=== PATIENT | female | born 1960 | race Caucasian/White ===

== ENCOUNTER 2025-02-24 12:01 | Emergency (ER) | payer OTHER, SELFPAY ==
[2025-02-24] VITALS (22 sets, daily range): BP systolic 118–169; BP diastolic 66–102; PULSE 74–97; RESP 15–25; TEMP 36.9; O2SAT 93–100
--- NOTE | ~2025-02-24 | XR_ITS ---
XR chest 2V Ordering provider: Kimani Shore MD History: 64 years Female with . cp, LEFT SIDE INTENSE CHEST PRESSURE . Comparison: None. FINDINGS: MEDIASTINUM: The cardiac silhouette is not enlarged. LUNGS: No effusions or pneumothorax. Prominent bronchovascular markings in the left lower lobe area. Follow-up to exclude early pneumonia advised. OTHER: No free air under the diaphragm. IMPRESSION: No definite acute cardiopulmonary pathology. Slightly prominent markings in the left lower lobe area. Follow-up to exclude early pneumonia advised. Reviewed, dictated and finalized at location A.
--- NOTE | ~2025-02-24 | CT_ITS ---
EXAMINATION: CTA chest abdomen pelvis DATE: 02/24/2025 15:49 INDICATION: Left chest pain radiating to back. Diaphoresis. TECHNIQUE: Computed tomographic angiography (CTA) of the chest, abdomen, and pelvis was performed wit h 100 mL Omnipaque-350 intravenous contrast. Volume-rendered 3D-reconstructions of the aorta and larg e arteries were constructed by the technologist on a separate workstation. Automated exposure control and iterative reconstruction technique were employed. The dose-length product was 1084.54 mGy-cm. COMPARISON: None FINDINGS: Chest: Mild dependent and basilar atelectasis in the bilateral lower lobes. No pneumonia, pulmonary edema, p leural effusion or pneumothorax. Heart size is normal. No pericardial effusion. Thoracic aorta is nor mal in caliber with no dissection. No pathologically enlarged thoracic lymphadenopathy. Small sliding -type hiatal hernia. Moderate thoracic spondylosis. Abdomen and pelvis: Postoperative changes of prior Jose Elias-en-Y gastric bypass procedure with jejunojejunal anastomosis in t he left upper quadrant. There are prominent edematous-appearing wall thickening of the stomach scarri ng along the lesser curvature and more diffusely about the gastric antrum and pylorus suspicious for gastritis or peptic ulcer disease. A few gallstones in the dependent aspect of the normal-appearing g allbladder. Liver, spleen, pancreas, bilateral adrenal glands and kidneys are normal. No bowel obstru ction. Normal appendix. Bladder, uterus and bilateral adnexa are unremarkable. Small amount of perihe patic, perisplenic and pelvic ascites. No abscess or free intraperitoneal gas. No pathologically enla rged abdominal or pelvic lymphadenopathy. Small amount of atherosclerotic plaque along the normal zabrina iber abdominal aorta with no dissection or hemodynamically significant stenosis. Mild S-shaped curvat ure of the lumbar spine with moderate to severe spondylosis. IMPRESSION: 1. Postoperative changes of prior gastric bypass procedure with prominent wall thickening in the mid to distal stomach which could be seen with gastritis or peptic ulcer disease. 2. Cholelithiasis. 3. Small amount of nonspecific ascites in the abdomen or pelvis. Reviewed, dictated and finalized at location A. IMPRESSION: 1. Postoperative changes of prior gastric bypass procedure with prominent wall thickening in the mid to distal stomach which could be seen with gastritis or p eptic ulcer disease. 2. Cholelithiasis. 3. Small amount of nonspecific ascites in the abdomen or pelvis.
--- NOTE | 2025-02-24 12:02 | ECG_ITS ---
Test Date: 2025-02-24 12:06:03 Measurements Intervals [place] Rate: 91 P: 60 MT: 165 QRS: 29 QRSD: 91 T: 50 QT: 360 QTc: 445 Interpretive Statements SINUS RHYTHM No previous ECG available for comparison Electronically Signed On 02-24-2025 14:14:26 CDT by Jerilyn Mills
--- OUTSIDE RECORDS SUMMARY | 2025-02-24 12:06 | XMS_ITS | Clinical Summary ---
Author Organization [facility] Address [address] [place] [address] Phone Care Team Providers Care Stage Driver Name Role Phone Unavailable Primary Care Provider Unavailabl e Social History Tobacco Use Types Packs/Day Years Used Date Smoking Tobacco: Never Assessed Comments Unknown Sex and Gender Information Value Date Recorded Sex Assigned at Not on file Legal Sex Female 12:22 PM CDT Gender Identity Not on file Sexual Orientation Not on file Plan of Treatment Health Maintenance Due Date Last Done Comments DTAP/TDAP/TD VACCINES (1 - Tdap) 1980 HPV/Cotest (21-29) 1982 CERVICAL CANCER SCREENING 1991 HPV/Cotest (30-65) 1991 PAP SMEAR 1991 BREAST CANCER SCREENING 2001 COLORECTAL SCREENING 2006 Colorectal Cancer Screening 2006 FIT-DNA Q 3 years 2006 FIT/FOBT Q 1 year 2006 Flex Sig/CT Colonography Q 5 years 2006 ZOSTER VACCINE (1 of 2) 2011 INFLUENZA VACCINE (#1) 2024 RSV VACCINE (60+ or ) (1 - 1-dose 75+ series) 2036
--- OUTSIDE RECORDS SUMMARY | 2025-02-24 12:06 | XMS_ITS | Clinical Summary ---
Author Organization [facility] Address [address] [place] [id number] Care Team Providers Care Salvage Winder And Inspector Name Role Phone Unavailable Primary Care Provider Unavailabl e Social History Tobacco Use Types Packs/Day Years Used Date Smoking Tobacco: Never Assessed Comments Unknown Sex and Gender Information Value Date Recorded Sex Assigned at Not on file Legal Sex Female 4:53 PM CDT Gender Identity Not on file Sexual Orientation Not on file Plan of Treatment Health Maintenance Due Date Last Done Comments Cervical Cancer Screening Pa p Smear (Age 30 to 64) Every 3 Years 1961 Colorectal Cancer Screening Colonoscopy (10 Years) 1961 Annual Physical 1964 Hepatitis C 1979 DTaP, Tdap and Td Vaccines ( 1 - Tdap) 1980 Cervical Cancer Screening Pa p with HPV Testing (Age 30 to 64) Every 5 Years 1991 Cervical Cancer Screening with HPV 1991 Mammogram Screening 2001 Pneumococcal Vaccine: 50+ Ye ars (1 of 1 - PCV) 2011 Zoster Vaccines (1 of 2) 2011 COVID-19 Vaccine (2023-2 5 season) 2024 RSV Immunization or 60+ Years (1 - 1-dose 75+ series) 2036 Meningococcal B Vaccine Aged Out No l onger eligible based on patient's age to complete this topic Meningococcal Vaccine Aged Out No parvin jordin eligible based on patient's age to complete this topic RSV Immunizations Under 20 Months Aged Out No longer eligible based on patient's age to complete this topic
[2025-02-24 12:15] LABS: Basophils Absolute Auto 0.1 K/mm3 (0.0-0.1); Basophils Percent Auto 0.9 % (0.2-1.2); Eosinophils Absolute Auto 0.1 K/mm3 (0-0.3); Eosinophils Percent Auto 0.9 % (0-4.4); Hemoglobin 12.9 g/dL (12.0-15.0); Immature Granulocyte Absolute 0.05 K/mm3 (0.00-0.031); Immature Granulocyte Percent A 0.7 % (0-0.5); Lymphocytes Absolute Auto 1.71 K/mm3 (0.9-3.2); Lymphocytes Percent Auto 22.2 % (18.3-44.2); Mean Corpuscular HGB Conc 31.5 g/dl (32-36); Mean Corpuscular Hemoglobin 28.9 pg (26-34); Mean Corpuscular Volume 91.9 fl (80-100); Mean Platelet Volume 8.7 fl (7.4-10.4); Monocytes Absolute Auto 0.5 K/mm3 (0.1-0.6); Monocytes Percent Auto 6.1 % (2.6-8.5); Neutrophils Absolute Auto 5.3 K/mm3 (1.3-6.7); Neutrophils Percent Auto 69.2 % (45.5-73.1); Platelet Count Result 393 k/mm3 (150-375); Red Blood Count 4.46 M/mm3 (4.2-5.4); Red Cell Distribution Width 13.3 % (11.5-14.5); White Blood Count 7.7 K/mm3 (4.5-10.0)
--- NOTE | 2025-02-24 12:16 | ED_ITS ---
HPI - Chest Pain General Chief Complaint: Chest Pain Stated Complaint: chest pain Time Seen by Provider: 02/24/25 12:03 History of Present Illness HPI narrative: 64-year-old female with a past medical history including hypertension, ADHD. She presents to the emergency room with chief complaint of left-sided squeezing chest pressure. She states that happened within the last hour while she was at work not doing anything particular stress for or strenuous. No exertional onset. No change in quality of symptoms with positional changes such as lying flat or leaning forward. No associated difficulty in breathing. Minor nauseousness that since abated. Chest pressure reached intensity after about 15 minutes and then slowly went away but not fully back to normal. No back pain, abdominal pain, fever chills. Some slight radiation towards the left jaw and left arm according to the patient. No history of cardiac disease to her knowledge. Recently saw her regular doctor for hypertension follow-up and notes that her blood pressure today is higher than it has ever been. Related Data Allergies Allergy/AdvReac Type Severity Reaction Status Date / Time No Known Allergies Allergy Mild Verified 02/24/25 12:11 Review of Systems 2 Review of Systems: As reviewed above in HPI [facility] Past Medical History Medical History Small bowel perforation Anemia Surgical History Surgical History History of dilation and curettage Hx of exploratory laparotomy History of laparoscopy Family History Family History Mother Hypertension Cerebrovascular accident Family history of diabetes mellitus in first degree relative Family history of coronary artery disease Family history of dementia Father Family history of elevated blood lipids Family history of coronary artery disease, Onset Age: 200 Patient's father is Other Diabetes mellitus Family history of cardiovascular disease Family history of kidney disease Social History Social History Smoking status: Never smoker Second hand tobacco smoke exposure: No Alcohol intake: current Do You Feel Safe in your Home?: Yes Lack of Transportation: No Lack of Food: Never True Current Housing: I Have Housing Concerned About Future Housing: No Difficulty Paying Gas/Electric Bills: No Difficulty Paying for Meds: No Currently Unemployed: No Education: Associate Degree Difficulty w/ Childcare or Family Care: No Exam 2 Narrative: GENERAL: [Well-appearing, well-nourished, and in no acute distress.] HEAD: [Normocephalic, atraumatic.] EYES: [PERRLA and EOMI.] ENT: Nares clear, no rhinorrhea or epistaxis. Mucous membranes moist. NECK: Supple. CHEST: [Clear to auscultation. No respiratory distress.] HEART: [Regular rate and rhythm]. No murmur heard. [Normal peripheral pulses.] ABDOMEN: [Soft, nondistended], [nontender], [No rigidity or guarding] EXTREMITIES: Normal range of motion. [No edema.] SKIN: Warm, dry, no rash. NEURO: [No focal deficits]. Alert and oriented [x3.] PSYCH: [Normal mood and affect.] Course Vital Signs Vital signs: Vital Signs Temperature 36.9 C 02/24/25 12:05 Pulse Rate 97 02/24/25 12:05 Respiratory Rate 18 02/24/25 12:05 Blood Pressure 169/102 H 02/24/25 12:05 Pulse Oximetry 100 02/24/25 12:05 Oxygen Delivery Room Air 02/24/25 12:05 Temperature 36.9 C 02/24/25 12:05 Pulse Rate 94 02/24/25 18:26 Respiratory Rate 16 02/24/25 18:26 Blood Pressure 118/72 02/24/25 18:26 Pulse Oximetry 99 02/24/25 18:26 Oxygen Delivery Room Air 02/24/25 12:05 MDM - Chest Pain MDM Narrative Medical decision making narrative: 64-year-old female with history of hypertension and ADHD who presents to the emergency room with left-sided squeezing chest pain/pressure. Onset within the last hour, reached intensity after about 15 minutes and then slowly came down. Minor associated nauseousness that has stopped. No vomiting, shortness a breath, pleuritic chest pain, pain with positional changes, abdominal pain, burning epigastric pain, fever, chills. No trauma or injury. Otherwise was in her normal state of health with recent follow-up with her PCP for hypertension. Her blood pressure is elevated 169/102 but no tachycardia, fever, hypoxia or significant elevations compared to her prior baseline blood pressure. Considerations presently are for acute coronary syndrome, angina, musculoskeletal chest pain, GERD, pneumothorax, pneumonia, pulmonary embolism, less likely aortic process. Cardiac workup ordered including CBC, CMP, lipase, chest x-ray, EKG, serial troponins, D-dimer. Patient placed on monitoring engineer and frequently re-evaluated. Workup shows no leukocytosis or anemia. Slightly elevated platelet count. Negative troponin x2. Negative D-dimer. Coagulation panel is normal. Normal electrolytes, normal renal function, normal LFTs and glucose. Chest x-ray shows no definitive acute pathology but some slightly prominent markings left lower lobe concerning for potential early pneumonia. Patient was re-evaluated and was diaphoretic and pain requiring additional analgesics. We ordered a CT angiography of the chest abdomen pelvis at this time for further evaluation given patient's worsening pain. CT shows postoperative changes from a previous gastric bypass with wall thickening consistent with gastritis versus peptic ulcer disease. Some cholelithiasis that is likely asymptomatic and she has no abdominal right-sided pain. And small trace ascites. Patient re-evaluated after treatments and had significant improvement her pain. I discussed the CT findings with her as well as her workup. Thinking at this time that her symptoms in the left side of her chest likely secondary to gastritis and irritation of the diaphragm. Patient will be referred to a GI doctor and a surgeon and started on acid thad medications. She was given prescription medications and comfortable with discharge home with outpatient follow-up. Patient's questions were answered she was given strict return precautions prior to safe discharge home. Medical Records Data Attestation: I reviewed the patient's medical records. Lab Data Attestation: I reviewed the patient's lab results. 02/24/25 12:10 02/24/25 12:09 Labs: Lab Results 02/24/25 02/24/25 02/24/25 Range/Units 12:09 12:10 14:45 WBC 7.7 (4.5-10.0) K/mm3 RBC 4.46 (4.2-5.4) M/mm3 Hgb 12.9 (12.0-15.0) g/dL Hct 41.0 (37.0-47.0) % MCV 91.9 (80-100) fl MCH 28.9 (26-34) pg MCHC 31.5 L (32-36) g/dl RDW 13.3 (11.5-14.5) % Plt Count 393 H (150-375) k/mm3 MPV 8.7 (7.4-10.4) fl Immature Gran % (Auto) 0.7 H (0-0.5) % Neut % (Auto) 69.2 (45.5-73.1) % Lymph % (Auto) 22.2 (18.3-44.2) % [place] % (Auto) 6.1 (2.6-8.5) % Eos % (Auto) 0.9 (0-4.4) % Baso % (Auto) 0.9 (0.2-1.2) % Lymph # (Auto) 1.71 (0.9-3.2) K/mm3 [place] # (Auto) 0.5 (0.1-0.6) K/mm3 Eos # (Auto) 0.1 (0-0.3) K/mm3 Baso # (Auto) 0.1 (0.0-0.1) K/mm3 Abs Immat Gran (auto) 0.05 H (0.00-0.031) K/mm3 Absolute Neuts (auto) 5.3 (1.3-6.7) K/mm3 Absolute Nucleated RBC 0.000 (0.0-0.012) K/mm3 Nucleated RBC % 0.0 (0.0-0.2) % PT 13.0 (11.1-14.7) Seconds INR 0.9 APTT 23.0 (22.3-36.8) Seconds D-Dimer 0.46 (<0.48) ug/mL Sodium 137 (137-145) mmol/L Potassium 4.1 (3.4-5.0) mmol/L Chloride 104 (98-107) mmol/L Carbon Dioxide 24 (22-30) mmol/L Anion Gap 9 (4-12) mmol/L BUN 20 H (7-17) mg/dL Creatinine 0.92 (0.7-1.0) mg/dL Estim Creat Clear Calc 61 ml/min Estimated GFR > 60 (59 - ) Glucose 105 (65-110) mg/dL Calcium 9.0 (8.4-10.2) mg/dL Total Bilirubin 0.9 (0.2-1.3) mg/dL AST 56 H (14-36) U/L ALT 81 H (6-35) U/L Alkaline Phosphatase 92 (38-126) U/L Troponin I < 0.012 < 0.012 (0.000-0.034) ng/mL Total Protein 8.0 (6.3-8.2) g/dL Albumin 4.6 (3.5-5.1) g/dL Lipase 135 (23-300) U/L Imaging Data Attestation: I personally reviewed and interpreted this imaging study as follows: My impression: Impressions Chest X-Ray 02/24/25 12:25 IMPRESSION: No definite acute cardiopulmonary pathology. Slightly prominent markings in the left lower lobe area. Follow-up to exclude early pneumonia advised. Chest/Abdomen/Pelvis CTA 02/24/25 15:54 IMPRESSION: 1. Postoperative changes of prior gastric bypass procedure with prominent wall thickening in the mid to distal stomach which could be seen with gastritis or peptic ulcer disease. 2. Cholelithiasis. 3. Small amount of nonspecific ascites in the abdomen or pelvis. ECG Data EKG #1: Attestation: I personally reviewed and interpreted this ECG as follows: ECG completion date: 02/24/25 ECG completion time: 12:06 Prior ECG tracings: not available for review Interpretation: Sinus rhythm, no ST segment elevations, depressions or acute inversions. No QTC EKG for comparison. QTC 445, QRS 91, ID interval 165, rate of 91 beats per minute. Regular rate, regular rhythm and axis. Discharge Plan Discharge Clinical Impression: Chest pain, Gastritis Patient Disposition: Home Condition: Stable Instructions: Antibiotic Form, Chest Pain (ED), Gastritis (DC) Additional Instructions: Your CT scan shows prominent thickening of the distal stomach near by your gastric bypass procedure. This could be gastritis or peptic ulcer disease. Your CT scan also shows some small gallstones but no cholecystitis or concern from that aspect causing any of her symptoms today. We will send you home with a combination medications to try and treat this. Follow-up with your primary care provider Dr. Billy and the provided specialists for follow-up. Patient Language: Uzbek Prescriptions: New alum-mag hydroxide-simeth [Maalox Advanced] 200-200-20 mg/5 mL suspension 15 ml PO QID PRN (Reason: indigestion) Qty: 3000 0RF Rx Instructions: administer between meals and at bedtime pantoprazole [Protonix] 20 mg tablet,delayed release (DR/EC) 20 mg PO HS 28 Days Qty: 28 0RF famotidine [Pepcid] 20 mg tablet 20 mg PO BID Qty: 20 0RF No Action losartan 100 mg tablet 100 mg PO DAILY Qty: 90 2RF atorvastatin 20 mg tablet 20 mg PO DAILY Qty: 90 1RF naltrexone 50 mg tablet 50 mg PO DAILY Qty: 30 3RF dextroamphetamine-amphetamine [Adderall] 20 mg tablet 20 mg PO BID Qty: 60 0RF Rx Instructions: administer doses at least 4-6 hours apart meloxicam 15 mg tablet 15 mg PO DAILY Qty: 90 2RF Follow-up/Referrals: Sohail Moeller MD [Physician] - 1 Week (Gastritis versus peptic ulcer disease, prior gastric bypass) Colin Pinzon MD [Emergency Provider] - Ashish Garcia DO [Physician] - 1 Week (Abdominal pain, Cholelithiasis, prior gastric bypass) Yg Terry MD [Primary Care Provider] - Time of Disposition: 17:22 Quality HEART score for chest pain patients History: slightly suspicious ECG: normal Age: > 45 and < 65 years Risk factors: 1 or 2 risk factors Troponin: < or = to 1x normal limit Heart score: 2
[2025-02-24 12:27] LABS: INR 0.9
--- OUTSIDE RECORDS SUMMARY | 2025-02-24 12:31 | XMS_ITS | Clinical Summary ---
Author Organization [facility] Address [address] [place] [id number] Care Team Providers Care Certified Pharmacy Tech Name Role Phone Unavailable Primary Care Provider [...]
--- OUTSIDE RECORDS SUMMARY | 2025-02-24 12:31 | XMS_ITS | Clinical Summary ---
Author Organization [facility] Address [address] [place] [phone] Phone Care Team Providers Care Software Engineering Manager Name Role Phone Unavailable Primary Care Provider [...]
[2025-02-24 12:32] LABS: Alanine Aminotransferase 81 U/L (6-35); Albumin Level 4.6 g/dL (3.5-5.1); Alkaline Phosphatase 92 U/L (38-126); Anion Gap 9 mmol/L (4-12); Aspartate Amino Transferase 56 U/L (14-36); Bilirubin,Total 0.9 mg/dL (0.2-1.3); Blood Urea Nitrogen 20 mg/dL (7-17); Carbon Dioxide 24 mmol/L (22-30); Chloride 104 mmol/L (98-107); Estimated CRCL calculation 61 ml/min; Estimated Glomerular Filt Rate > 60; Glucose 105 mg/dL (65-110); Lipase 135 U/L (23-300); Potassium 4.1 mmol/L (3.4-5.0); Sodium 137 mmol/L (137-145)
[2025-02-24 12:34] LABS: D Dimer 0.46 ug/mL (<0.48)
[2025-02-24] MEDS: ASPIRIN 81 MG CHEWABLE TABLET 324 MG PO (12:36)
[2025-02-24 12:44] LABS: Troponin I < 0.012 ng/mL (0.000-0.034)
[2025-02-24] MEDS: FAMOTIDINE 20 MG/2 ML VIAL IV PUSH (14:28)
[2025-02-24] MEDS: KETOROLAC 15 MG/ML VIAL (*BKC) IV PUSH (14:28)
--- NOTE | 2025-02-24 14:44 | ECG_ITS ---
Test Date: 2025-02-24 14:53:42 Measurements Intervals [place] Rate: 75 P: 55 [place]: 168 QRS: 26 QRSD: 98 T: 52 QT: 396 QTc: 445 Interpretive Statements SINUS RHYTHM Compared to ECG 02/24/2025 12:06:03 No significant changes Electronically Signed On 02-24-2025 15:06:18 CDT by Jerilyn Mills
[2025-02-24 15:13] LABS: Troponin I < 0.012 ng/mL (0.000-0.034)
[2025-02-24] MEDS: MORPHINE SULFATE (*CRX) 4 MG/ML INJ IV PUSH (15:28)
== END 2025-02-24 18:30 | disposition home or self-care (01) ==
PROVIDERS: Emergency Medicine; Emergency Provider Student in an Organized Health Care Education/Training Program; PCP Family Medicine Adolescent Medicine
DX: R07.9 Chest pain, unspecified (principal); K29.70 Gastritis, unspecified, without bleeding
CPT/HCPCS: 36415; 71046; 71275; 74174; 80053; 83690; 84484; 85025; 85380; 85610; 85730; 93005; 96374; 96375; 99284; A9270; J1885; J2270; Q9967

== ENCOUNTER 2025-04-01 08:30 | Outpatient (CLI) | payer OTHER, SELFPAY ==
--- OUTSIDE RECORDS SUMMARY | 2025-04-01 08:35 | XMS_ITS | Clinical Summary ---
Author Organization [facility] Address [address] [address] [address] [place] [phone] Phone Care Team Providers Care Bean Sprout Laborer Name Role Phone Unavailable Primary Care Provider [...]
--- NOTE | 2025-04-01 08:44 | EST_ITS ---
Patient Info Name: Michelle Patel Age: 64 years : 1960 Gender: Female Ht: 65 in Wt: 180 lbs BSA: 1.96 m2 BP: 134 / 84 mmHg Technical Quality: Good Exam Date: 04/01/2025 8:50 AM Patient Status: O Admit Date: 04/01/2025 Exam Type: CA stress echo Treadmill exercise stress echocardiogram is performed. Associate Financial Analyst: Soo Saenz Attending Provider: Yg Terry MD Exercise Technologist: Radha Boggs Exercise Physician: Balta Herrera DO Stress Echo Findings Left Ventricle Appropriate increase in LV endocardial thickening with systole. Appropriate augmentation of contractility with systole. No wall motion abnormality. Left Ventricle Normal LV systolic function, no wall motion abnormality. Protocol: Ward Stress ECG Details Stage: REST Duration (min): 0 min : 41 sec Speed (mph): 0.0 Grade (%): 0 HR (bpm): 73 SBP (mmHg): 134 DBP (mmHg): 84 METS: --- Stage: REST Duration (min): 28 min : 19 sec Speed (mph): 0.0 Grade (%): 0 HR (bpm): 77 SBP (mmHg): 134 DBP (mmHg): 84 METS: --- Stage: STAGE 1 Duration (min): 1 min : 0 sec Speed (mph): 1.7 Grade (%): 10 HR (bpm): 112 SBP (mmHg): 134 DBP (mmHg): 84 METS: --- Stage: STAGE 1 Duration (min): 2 min : 0 sec Speed (mph): 1.7 Grade (%): 10 HR (bpm): 129 SBP (mmHg): 134 DBP (mmHg): 84 METS: --- Stage: STAGE 1 Duration (min): 3 min : 0 sec Speed (mph): 1.7 Grade (%): 10 HR (bpm): 137 SBP (mmHg): 183 DBP (mmHg): 88 METS: --- Stage: STAGE 2 Duration (min): 1 min : 0 sec Speed (mph): 2.5 Grade (%): 12 HR (bpm): 146 SBP (mmHg): 183 DBP (mmHg): 88 METS: --- Stage: STAGE 2 Duration (min): 1 min : 32 sec Speed (mph): 0.0 Grade (%): 0 HR (bpm): 155 SBP (mmHg): 183 DBP (mmHg): 88 METS: --- Stage: RECOVERY Duration (min): 0 min : 27 sec Speed (mph): 0.0 Grade (%): 0 HR (bpm): 145 SBP (mmHg): 198 DBP (mmHg): 103 METS: --- Stage: RECOVERY Duration (min): 1 min : 27 sec Speed (mph): 0.0 Grade (%): 0 HR (bpm): 116 SBP (mmHg): 198 DBP (mmHg): 103 METS: --- Stage: RECOVERY Duration (min): 2 min : 27 sec Speed (mph): 0.0 Grade (%): 0 HR (bpm): 109 SBP (mmHg): 202 DBP (mmHg): 97 METS: --- Stage: RECOVERY Duration (min): 3 min : 4 sec Speed (mph): 0.0 Grade (%): 0 HR (bpm): 102 SBP (mmHg): 213 DBP (mmHg): 102 METS: --- Rest HR: 77 bpm Peak HR: 156 bpm Rest Sys BP: 134 mmHg Peak Sys BP: 213 mmHg Max Pred HR: 157 bpm % Max Pred HR: 99 % Target HR: 133 bpm Max RPP: 33,228 bpm*mmHg Ku Score: 1 BP Response: Patient exhibited a hypertensive response with stress Termination Reason: Reached target heart rate or workload Cardiac Symptoms: Shortness of breath Max ST Seg Deviation: 1 mm Total Time: 4 min : 32 sec Rest Shields BP: 84 mmHg Peak Shields BP: 102 mmHg Angina Score: None Total METS: 7.1 Resting ECG Sinus rhythm. Stress ECG No ST changes. Arrhythmias None. Report Signatures Stress ECG Echo
== END 2025-04-01 08:31 | disposition home or self-care (01) ==
PROVIDERS: PCP Family Medicine Adolescent Medicine; Visit Provider Family Medicine Adolescent Medicine
DX: R06.02 Shortness of breath (principal); R07.9 Chest pain, unspecified
CPT/HCPCS: 93351